=== PATIENT | female | born 1980 | race Caucasian/White ===

== ENCOUNTER → 2016-11-07 | Outpatient (CLI) | payer OTHER, MEDICAID ==
--- NOTE | 2016-11-07 11:51 | RADIOLOGY REPORT PS360 ---
US PELVIS-TRANSVAGINAL ONLY HISTORY: LEIOMYOMA OF UTERUS, ovarian cyst COMPARISON: 10/17/2016 FINDINGS: The uterus measures 10 x 5 x 5 cm. Nabothian cyst is present at the cervical region and 5 mm. Combined endometrial thickness is 9 mm. There is a 3 cm area of heterogeneous echogenicity along posterior aspect of the body the uterus consistent with fibroid. A 2 cm fibroid is present anteriorly The left ovary is enlarged at 5.4 x 4.5 cm containing a 4 cm cyst which has developed since the previous exam. This has developed since the previous exam. The right ovary is 6 x 5 cm and contains a 5.7 x 4.6 cm cyst. This previously measured 3 x 2 cm. No obvious internal septations or wall thickening of the cyst. No cul-de-sac fluid evident. IMPRESSION: 1. Prominent bilateral ovarian cysts as described above. The left ovarian cyst has developed since the previous exam and the right ovarian cyst has increased in size 2. Uterine fibroids
== END ==
LOC: RAD 10-31 13:30
DX: D25.9 Leiomyoma of uterus, unspecified (principal); N94.89 Other specified conditions associated with female genital organs and menstrual cycle